=== PATIENT | male | born 1930 | race Caucasian/White ===

== ENCOUNTER 2016-06-26 10:44 | Day surgery (SDC) | payer OTHER ==
[~2016-06-26] VITALS: Ht 165.1 cm; Wt 75.9 kg
[~2016-06-26 10:44] MED LIST: ASPI81TA82 PO; CARD240C6 PO; ENAL5TAB PO; ISOS30 PO; NITR.4 SL; PRIL40CA PO; RIVA15 PO; ZOCO10TA PO
[2016-06-26] MEDS ORDERED: ceFAZolin 2 GM PREMIX 50 ML IV SCH (11:00)
[2016-06-26] MEDS ORDERED: SODIUM CHLORID 0.9% 500 ML IV SCH (11:00)
[2016-06-26] MEDS ORDERED: INSULIN HUMAN REGULAR 1,000 UNITS/10 ML VIAL SQ PRN (11:00)
[2016-06-26] MEDS ORDERED: LACTATED RINGER'S 1000 ML IV SCH (11:00)
[2016-06-26] MEDS ORDERED: NS 1000 ML IV SCH (11:00)
[2016-06-26] MEDS ORDERED: METOPROLOL TARTRATE 25 MG TAB PO PRN (11:00)
[2016-06-26] MEDS ORDERED: CARV3.12 PO (11:11)
[2016-06-26] MEDS ORDERED: PLAV75TA29 PO (11:11)
[2016-06-26] MEDS ORDERED: ATOR40TA16 PO (11:11)
[2016-06-26] MEDS ORDERED: BUME1TAB PO (11:11)
[2016-06-26] MEDS ORDERED: TRAZ50TA12 PO (11:11)
[2016-06-26 11:13] VITALS: BP 131/79; PULSE 121; RESP 18; TEMP 97; O2SAT 89
[2016-06-26 11:41] LABS: AUTOMATED NEUTROPHIL # 5.3 TH/MM3 (1.8-7.7); BASOPHIL # 0.1 TH/MM3 (0-0.2); BASOPHIL % 1.2 % (0.0-2.0); EOSINOPHIL # 0.2 TH/MM3 (0-0.4); EOSINOPHIL % 2.5 % (0.0-4.0); HEMATOCRIT 30.7 % (39.0-51.0); HEMO FLAGS AUTO DIFF; LYMPHOCYTE # 1.6 TH/MM3 (1.0-4.8); MEAN CELL VOLUME 74.1 FL (80.0-100.0); MEAN CORPUSCULAR HEMOGLOBIN 22.8 PG (27.0-34.0); MEAN CORPUSCULAR HGB CONC 30.8 % (32.0-36.0); MONO % 13.2 % (0.0-8.0); NEUT % 64.1 % (16.0-70.0); PLATELET COUNT 216 TH/MM3 (150-450); RED BLOOD COUNT 4.15 MIL/MM3 (4.50-5.90); RED CELL DISTRIBUTION WIDTH 18.4 % (11.6-17.2); WHITE BLOOD COUNT 8.2 TH/MM3 (4.0-11.0)
[2016-06-26 12:00] LABS: BICARBONATE 28.5 MEQ/L (21.0-32.0); POTASSIUM 3.5 MEQ/L (3.5-5.1)
[2016-06-26 12:04] LABS: INTERNATIONAL NORMALIZED RATIO 1.1 RATIO
[2016-06-26 12:20] LABS: KERATOCYTES OCC (NORMAL); OVALOCYTES 1+ (NORMAL); PLATELET ESTIMATE SMEAR NORMAL (NORMAL); PLATELET MORPHOLOGY NORMAL (NORMAL); SCAN/DIFF AUTO DIFF CONFIRMED
[2016-06-26] MEDS: POVIDONE IODINE 5% (ANTISEPSIS KIT) 4 APPLICATIONS EACH NARE SCH ×2 (12:39→15:34)
[2016-06-26] MEDS: CHLORHEXIDINE GLUCONATE 2 % 1 PACK (2 CLOTHS) TOP SCH ×2 (12:39→15:34)
[2016-06-26] MEDS ORDERED: PROPOFOL 200 MG/20 ML AMP IV ONE (14:07)
[2016-06-26] MEDS ORDERED: LIDOCAINE HCL 2% 50 ML VIAL ONE (14:14)
[2016-06-26] MEDS: VANCOMYCIN 1000 MG/NS 250 ML IV SCH ×2 (14:18)
[2016-06-26] MEDS ORDERED: traMADol HCL 50 MG TAB PO PRN (16:45)
[2016-06-26] MEDS ORDERED: ZOLPIDEM TARTRATE 5 MG TAB PO PRN (16:45)
--- NOTE | 2016-06-26 17:51 | RADRPT ---
EXAM DATE/TIME: 06/26/2016 16:46 [place] COMPARISON: No previous studies available for comparison. INDICATIONS : Post pacemaker placement. Evaluate for pneumothorax. MEDICAL HISTORY : Hypertension. SURGICAL HISTORY : CABG. ENCOUNTER: Initial ACUITY: 1 day PAIN SCORE: 0/10 LOCATION: chest FINDINGS: A single view of the chest demonstrates the lungs to be symmetrically aerated without evidence of mas s, infiltrate or effusion. There are sternal wires and clips suggest CABG. Left subclavian bipolar pa cer in good position The cardiomediastinal contours are unremarkable. Osseous structures are intact . CONCLUSION: Normal examination. There are sternal wires and clips suggest CABG. Brayden Weiner MD on June 26, 2016 at 17:49 Board Certified Radiologist. This report was verified electronically.
[2016-06-26] MEDS ORDERED: BUMETANIDE 1 MG TAB PO SCH (18:00)
[2016-06-26] MEDS ORDERED: DILTIAZEM-CD 240 MG CAP ER PO SCH (18:00)
[2016-06-26] MEDS ORDERED: ISOSORBIDE MONONITRATE 30 MG TAB PO SCH (18:00)
[2016-06-26 19:40] VITALS: BP 115/59; PULSE 77; RESP 22; TEMP 98; O2SAT 95
[2016-06-26 20:37] VITALS: PULSE 77
[2016-06-26] MEDS ORDERED: ATORVASTATIN 40 MG TAB PO SCH (21:00)
[2016-06-26] MEDS ORDERED: traZODone HCL 50 MG TAB PO SCH (21:00)
[2016-06-26] MEDS: CARVEDILOL 3.125 MG TAB PO SCH (21:47)
[2016-06-27] VITALS: BP 119/56; PULSE 75; RESP 22; TEMP 98.4; O2SAT 94
[2016-06-27] MEDS ORDERED: VANCOMYCIN INJ 1,000 MG in SODIUM CHLOR 0.9% 250 ML INJ 250 ML IV ONE (01:30)
[2016-06-27 04:00] VITALS: BP 114/70; PULSE 73; RESP 22; TEMP 98.1; O2SAT 94
[2016-06-27] MEDS: VANCOMYCIN 1000 MG/NS 250 ML IV SCH ×2 (04:22)
[2016-06-27 08:00] VITALS: BP 119/71; PULSE 101; PULSE 103; RESP 16; TEMP 97.7; O2SAT 96
--- NOTE | 2016-06-27 08:25 | PD.CARD.PN ---
Subjective Subjective Remarks Denies pain, dyspnea, dizziness. Objective Medications Item Value Date Time Aspirin 81 mg 06/27/16 0900 (Aspirin Chew) DAILY/PO Clopidogrel 75 mg 06/27/16 0900 Bisulfate DAILY/PO (Plavix) Atorvastatin 40 mg 06/26/16 2100 Calcium HS/PO 06/26/162146 (Lipitor) Carvedilol 3.125 mg 06/26/16 2100 (Coreg) BID/PO 06/26/162146 Bumetanide 1 mg 06/26/16 1800 (Bumetanide) DAILY/PO Diltiazem HCl 240 mg 06/26/16 1800 (Cardizem Cd) DAILY/PO Isosorbide 30 mg 06/26/16 1800 Mononitrate DAILY/PO (Imdur) Vital Signs / I&O Vital Signs Date Time Temp Pulse Resp B/P Pulse Ox O2 Delivery O2 Flow Rate FiO2 06/27/16 04:00 98.1 73 22 114/70 94 06/27/16 00:00 98.4 75 22 119/56 94 06/26/16 20:37 77 06/26/16 19:40 98.0 77 22 115/59 95 06/26/16 11:13 97.0 121 18 131/79 89 I/O 06/26/16 06/26/16 06/26/16 06/27/16 06/27/16 06/27/16 07:00 15:00 23:00 07:00 15:00 23:00 Intake Total 220 ml 470 ml Output Total 300 ml 500 ml Balance -80 ml -30 ml Intake Oral 220 ml 220 ml IV Total 250 ml Output Urine Total 300 ml 500 ml # Bowel Movements 0 0 Physical Exam ICD site clean, dry, intact, no hematoma or tenderness. Laboratory Laboratory Tests Test 06/26/16 11:13 White Blood Count 8.2 TH/MM3 Red Blood Count 4.15 MIL/MM3 Hemoglobin 9.5 GM/DL Hematocrit 30.7 % Mean Corpuscular Volume 74.1 FL Mean Corpuscular Hemoglobin 22.8 PG Mean Corpuscular Hemoglobin 30.8 % Concent Red Cell Distribution Width 18.4 % Platelet Count 216 TH/MM3 Mean Platelet Volume 9.0 FL Neutrophils (%) (Auto) 64.1 % Lymphocytes (%) (Auto) 19.0 % Monocytes (%) (Auto) 13.2 % Eosinophils (%) (Auto) 2.5 % Basophils (%) (Auto) 1.2 % Neutrophils # (Auto) 5.3 TH/MM3 Lymphocytes # (Auto) 1.6 TH/MM3 Monocytes # (Auto) 1.1 TH/MM3 Eosinophils # (Auto) 0.2 TH/MM3 Basophils # (Auto) 0.1 TH/MM3 CBC Comment AUTO DIFF Differential Comment AUTO DIFF CONFIRMED Platelet Estimate NORMAL Platelet Morphology Comment NORMAL Ovalocytes 1+ Keratocytes OCC Prothrombin Time 12.0 SEC Prothromb Time International 1.1 RATIO Ratio Activated Partial 26.0 SEC Thromboplast Time Sodium Level 137 MEQ/L Potassium Level 3.5 MEQ/L Chloride Level 101 MEQ/L Carbon Dioxide Level 28.5 MEQ/L Anion Gap 8 MEQ/L Blood Urea Nitrogen 33 MG/DL Creatinine 1.44 MG/DL Estimat Glomerular Filtration 46 ML/MIN Rate Random Glucose 118 MG/DL Calcium Level 9.4 MG/DL Assessment and Plan Problem List: (1) S/P implantation of automatic cardioverter/defibrillator (AICD) Assessment and Plan: Stable overnight. Post op CXR OK. ICD site OK. Awaiting re-interrogation of device by [employer] rep. Discharge home if pacing /defibrillatory parameters acceptable. Same home medications plus Levaquin 500 mg qd for 5 days, 1 week f/u for incision recheck. (2) CAD (coronary artery disease) Assessment and Plan: Stable CAD status. No recent angina. Continue Plavix, aspirin. (3) Paroxysmal atrial fibrillation Assessment and Plan: Remains in atrial fib. To resume warfarin tomorrow. (4) Ischemic cardiomyopathy Assessment and Plan: Compensated. Stable. No CHF. Continue beta jose. No RYAN-I with his CRI. Code Status full code Discussed Condition With patient Problem Qualifiers (1) CAD (coronary artery disease): Qualified Code: I25.10 - Coronary artery disease involving [place] coronary artery of [place] heart without angina pectoris Quang Lr MD Jun 27, 2016 08:25
[2016-06-27] MEDS ORDERED: LEVA500T PO (08:28)
[2016-06-27] MEDS ORDERED: ASPIRIN 81 MG CHEW TAB PO SCH (09:00)
[2016-06-27] MEDS ORDERED: CLOPIDOGREL 75 MG TAB PO SCH (09:00)
[2016-06-27] MEDS ORDERED: PANTOPRAZOLE SOD 40 MG DELAYED RELEASE TAB PO SCH (09:00)
[2016-06-27] MEDS ORDERED: INFLUENZA VIRUS VACCINE (QUADRIVALENT) 0.5 ML SYR IM ONE (09:00)
[2016-06-27] MEDS: CARVEDILOL 3.125 MG TAB PO SCH (09:25)
[2016-06-27] MEDS ORDERED: DILTIAZEM HCL 25 MG/5 ML VIAL IV ONE (09:45)
[2016-06-27 12:00] VITALS: BP 113/62; PULSE 90; RESP 18; TEMP 98.1; O2SAT 98
--- NOTE | 2016-06-27 15:57 | EKG ---
Date Performed: 06/26/2016 Time Performed: 11:27:52 PTAGE: 86 years EKG: Probable atrial fibrillation with PVC(s) or aberrant ventricular conduction. Left axis pal ation RBBB with left anterior fascicular block Possible anterior infarct - age undetermined Lateral S T-T changes are nonspecific Compared to prior tracing no significant change Abnormal ECG PREVIOUS TRACING : 09/29/2015 11.28 DOCTOR: Yossi Carl Interpretating Date/Time 06/27/2016 15:55:30
--- NOTE | 2016-06-29 17:11 | MP ---
cc: THANIA PAPPAS DATE OF SURGERY: 06/26/2016 PROCEDURE Implantation of a biventricular AICD device, AICD defibrillation threshold testing. OPERATIVE NOTE The patient was brought to the operating suite in a fasting state after having signed informed consent. The left upper chest was prepped and draped as per policy and anesthetized with 1% lidocaine. Central venous access was obtained twice via the left subclavian vein after administration of 10 cc of IV contrast through a left arm peripheral IV. A transverse incision was made inferior to the left clavicle and using blunt dissection a subcutaneous pocket was formed down to the pectoralis fascia. Over the more lateral guidewire an 8-[place] sheath was placed and through this sheath a ventricular active fixation lead was introduced and its tip positioned in the right ventricular apex where good current of injury, stimulation threshold (0.6 volts) and sensitivity (16.4 mV) were demonstrated. This lead was secured into place using 2-0 silk ties down to the pectoralis fascia. Over the remaining guidewire a 9-[place] sheath was placed and through this sheath a coronary sinus guiding catheter was introduced. It was used to engage the coronary sinus. A coronary sinus lead was introduced and positioned in three different areas, the first two of which were somewhat suboptimal for pacing. It was finally placed in an anterolateral position where good stimulation threshold (1.5 volts) and sensitivity (21.4 mV) were demonstrated. This lead was secured into place using 2-0 silk ties down to the pectoralis fascia. The leads were then connected to the AICD generator which is a [employer] Itrevia device. The leads and the generator were placed back into the subcutaneous pocket which was closed using 3-0 Vicryl interrupted stitches in two to three layers to close the subcutaneous tissue and then 4-0 Monocryl running stitch to close the subcuticular tissue. Testing of the device was also performed. Ventricular fibrillation was induced. The patient was successfully rescued with a 20 joule shock after a charge time of 4 seconds at a shock impedance of 33 ohms. There were no apparent immediate complications. A portable chest x-ray is pending at the time of this dictation. CONCLUSIONS 1. Status post implantation of a biventricular AICD device using a [employer] Itrevia AICD generator. 2. Status post AICD defibrillation threshold testing. 3. Of note, as the patient is in chronic atrial fibrillation an atrial lead was not placed. MD JOSH Jones/ISABELA /4:34 PM /4:58 PM [facility]
== END 2016-06-27 12:20 | disposition home or self-care (01) ==
LOC: HDOC 10:44 → HDIC 10:44 → N04A 19:45 → HDOC 06-27 12:20
PROVIDERS: ATTEND Internal Medicine Cardiovascular Disease
DX: I11.0 Hypertensive heart disease with heart failure (principal); I50.9 Heart failure, unspecified; I48.0 Paroxysmal atrial fibrillation; I42.0 Dilated cardiomyopathy; I25.10 Atherosclerotic heart disease of native coronary artery without angina pectoris; Z79.01 Long term (current) use of anticoagulants; Z79.82 Long term (current) use of aspirin; Z23 Encounter for immunization
CPT/HCPCS: 33249; 71010; 80048; 85025; 85610; 85730; 93005; 93641; C1769; C1882; C1895; C1900; G0008; J0690; J3370; J7050; Q2038; 90471; 90686; C1721; C1779; C1898